=== PATIENT | female | born 1950 | race Caucasian/White ===

== ENCOUNTER 2018-03-22 01:19 | Emergency (ER) | payer MEDICARE, OTHER ==
[~2018-03-22] VITALS: Ht 167.6 cm; Wt 79.4 kg
[~2018-03-22 01:19] MED LIST: VAGIFEM10 MCG VG
== END 2018-03-22 05:07 | disposition home or self-care (01) ==
LOC: ER 01:19
DX: R04.0 Epistaxis (principal); Z88.5 Allergy status to narcotic agent; Z88.8 Allergy status to other drugs, medicaments and biological substances
CPT/HCPCS: 99283

== ENCOUNTER 2020-02-26 08:01 | Day surgery (SDC) | payer MEDICARE, OTHER ==
[~2020-02-26] VITALS: Ht 167.6 cm; Wt 76.1 kg
[~2020-02-26 08:01] MED LIST changes: +ACIDOPHILUS1 EAC3 PO; +ELIQUIS5 M2 PO; +Estrace Vagin42.5 GM; +MAG GLYCINATE100 MG PO; +MULTIVITAMINS1 EAC3 PO; +TURMERIC500 M2 PO
== END 2020-02-26 12:28 | disposition home or self-care (01) ==
LOC: ORSCSDS 08:01
PROVIDERS: Surgery
PROC: 0DBN8ZX Excision of Sigmoid Colon, Via Natural or Artificial Opening Endoscopic, Diagnostic (ICD-10-PCS; principal; 2020-02-26 11:00)
DX: Z12.11 Encounter for screening for malignant neoplasm of colon (principal); D12.5 Benign neoplasm of sigmoid colon; K64.8 Other hemorrhoids; Z86.010 Personal history of colon polyps; Z85.72 Personal history of non-Hodgkin lymphomas; E78.5 Hyperlipidemia, unspecified; I48.91 Unspecified atrial fibrillation; Z79.01 Long term (current) use of anticoagulants
CPT/HCPCS: 88305; J2704; J7120

== ENCOUNTER 2020-04-29 12:28 | Day surgery (SDC) | payer MEDICARE, OTHER ==
[~2020-04-29] VITALS: Ht 165.1 cm; Wt 76.8 kg
== END 2020-04-29 16:08 | disposition home or self-care (01) ==
LOC: ORSCSDS 12:28
PROVIDERS: Orthopaedic Surgery
PROC: 0SBC4ZZ Excision of Right Knee Joint, Percutaneous Endoscopic Approach (ICD-10-PCS; principal; 2020-04-29 13:45)
DX: M23.206 Derangement of unspecified meniscus due to old tear or injury, right knee (principal); M94.261 Chondromalacia, right knee; M25.861 Other specified joint disorders, right knee; C85.90 Non-Hodgkin lymphoma, unspecified, unspecified site; K21.9 Gastro-esophageal reflux disease without esophagitis; E78.5 Hyperlipidemia, unspecified; I48.91 Unspecified atrial fibrillation; Z79.01 Long term (current) use of anticoagulants
CPT/HCPCS: A9270; J0171; J0690; J1100; J1885; J2250; J2405; J2704; J2795; J3010; J7120